=== PATIENT | female | born 1975 | race Caucasian/White ===

== ENCOUNTER → 2023-03-27 12:06 | Outpatient (CLI) | payer OTHER, SELFPAY ==
--- NOTE | ~2023-03-27 | MM_ITS ---
EXAMINATION: MM screening [facility] BI w demetria HISTORY: Screening mammogram TECHNIQUE: Craniocaudal and mediolateral oblique 3-D tomosynthesis images were obtained and synthetic 2-D images were generated. CAD analysis was submitted and interpreted. COMPARISON: 07/12/2015 BREAST PARENCHYMAL COMPOSITION: The breasts are extremely dense, which lowers the sensitivity of mamm ography. FINDINGS: RIGHT BREAST: There is a possible mass in the posterior third of the breast 6 cm deep to the nipple l ine with the nipple axis. LEFT BREAST: No suspicious mass, calcification, or architectural distortion are identified to suggest malignancy. There has been no suspicious interval change. IMPRESSION: 1. Possible right breast mass. 2. Additional mammographic views and possible breast ultrasound are recommended. BI-RADS Category 0: Incomplete: Needs additional imaging evaluation. Reviewed, dictated and finalized at location A. FORMER IMPRESSION: 1. Possible right breast mass. 2. Additional mammographic views and possible breast ultrasound are recommended . BI-RADS Category 0: Incomplete: Needs additional imaging evaluation.
== END ==
PROVIDERS: PCP Obstetrics & Gynecology; Visit Provider Obstetrics & Gynecology
DX: Z12.31 Encounter for screening mammogram for malignant neoplasm of breast (principal); R92.8 Other abnormal and inconclusive findings on diagnostic imaging of breast
CPT/HCPCS: 77063; 77067

== ENCOUNTER 2023-05-01 09:47 | Outpatient (CLI) | payer OTHER, SELFPAY ==
--- NOTE | ~2023-05-01 | MMUS_ITS ---
EXAMINATION: MM diagnostic piero RT w demetria, US breast RT complete HISTORY: Possible mass in posterior third of breast 6 cm deep to the nipple on 03/27/2023 screening piero mogram TECHNIQUE: Additional 3-D tomosynthesis images of the right breast were performed and synthetic 2-D i mages were generated. CAD analysis was submitted and interpreted. High resolution complete right odalys st ultrasound examination including all 4 quadrants and subareolar area was performed. COMPARISON: 03/27/2023, 07/12/2015 bilateral screening mammogram examinations FINDINGS: MAMMOGRAPHIC FINDINGS: 3.3 x 3.5 mm circumscribed mildly lobular opacity is noted in the posterior central right breast, cor responding to the finding noted on the screening mammogram examination of 03/27/2023. There is extremely dense fibroglandular stroma which may obscure masses. ULTRASOUND: 3:00 4 cm from nipple: 1.4 x 2.6 x 4 mm marrow circumscribed sonolucency, consistent with small cyst 9:00 4 cm from nipple: Parallel circumscribed 2.2 x 3.4 x 4 mm hypoechoic lesion with through transmi ssion posterior enhancement, likely a complicated cyst or benign solid lesion 10:00 5 cm from nipple: Parallel circumscribed hypoechoic 1.9 x 4 x 3.7 mm lesion without internal va scularity or posterior shadowing, benign in appearance IMPRESSION: 1. Probable benign findings 2. 6 month follow-up diagnostic right mammogram and right breast ultrasound examination are recommend ed BI-RADS category 3, probably benign findings. Reviewed, dictated and finalized at location A. EST [employer] IMPRESSION: 1. Probable benign findings 2. 6 month follow-up diagnostic right mammogram and right breast ultrasound exa mination are recommended BI-RADS category 3, probably benign findings.
== END 2023-05-01 09:48 ==
LOC: MICIMG 09:48
PROVIDERS: PCP Obstetrics & Gynecology; Visit Provider Obstetrics & Gynecology
DX: R92.8 Other abnormal and inconclusive findings on diagnostic imaging of breast (principal)
CPT/HCPCS: 76641; 77061; 77065; G0279

== ENCOUNTER 2023-12-04 08:50 | Outpatient (CLI) | payer OTHER, SELFPAY ==
--- NOTE | ~2023-12-04 | MMUS_ITS ---
EXAMINATION: MM diagnostic piero RT w demetria, US breast RT limited HISTORY: Six-month follow-up of probably benign right breast lesion TECHNIQUE: Additional 3-D tomosynthesis images of the right breast were performed and synthetic 2-D i mages were generated. CAD analysis was submitted and interpreted. High resolution limited right breas t ultrasound was performed. COMPARISON: 05/01/2023, 03/27/2023, 07/12/2015 BREAST PARENCHYMAL COMPOSITION: The breasts are extremely dense, which lowers the sensitivity of mamm ography. FINDINGS: MAMMOGRAPHIC FINDINGS: Parenchymal pattern of the right breast is unchanged. No suspicious mass lesion or distortion. Severa l benign calcifications are present. No suspicious microcalcification. ULTRASOUND: At the 9:00 position right breast, 4 cm from the nipple, there is an elongated structure which is fel t to most likely represent normal fibroglandular tissue. No discrete mass lesion seen to correlate wi th the findings on prior exam. IMPRESSION: No distinct evidence for malignancy. Previously noted small sonographic lesions are not clearly iden tified on the current exam. Finding identified on the current sonogram is felt to most likely represe nt normal fibroglandular tissue. BI-RADS Category 1: Negative Reviewed, dictated and finalized at location M. IMPRESSION: No distinct evidence for malignancy. Previously noted small sonographic lesion s are not clearly identified on the current exam. Finding identified on the cur rent sonogram is felt to most likely represent normal fibroglandular tissue. BI-RADS Category 1: Negative
== END 2023-12-04 08:51 | disposition home or self-care (01) ==
PROVIDERS: PCP Obstetrics & Gynecology; Visit Provider Obstetrics & Gynecology
DX: R92.8 Other abnormal and inconclusive findings on diagnostic imaging of breast (principal)
CPT/HCPCS: 76642; 77061; 77065; G0279